=== PATIENT | female | born 1985 | race Two or more races ===

== ENCOUNTER 2024-06-21 13:10 | Outpatient (RCR) | payer MEDICAID, SELFPAY ==
--- NOTE | 2024-06-21 13:35 | XR_ITS ---
Examination: Biophysical profile, ultrasound Date and time of exam: June 21, 2024 1344 hours INDICATIONS: Diagnosis gestational diabetes, diagnosis advanced maternal age Technique: Multiple transabdominal sonographic images of the pelvis abdomen obtained. Attention is directed to the breathing movement, gross body movement, amniotic fluid volume and tone. Findings: Amniotic fluid index 8.2 cm Total biophysical profile is 8 of 8. breathing movement is 2. Gross body movement is 2. tone is 2. Qualitative amniotic fluid volume is 2 Impression: Biophysical profile is 8 of 8.
[2024-06-21 14:38] VITALS: BP 177/101; PULSE 80; RESP 18; TEMP 36.7
== END 2024-06-21 23:59 | disposition home or self-care (01) ==
LOC: S4S1 13:10
PROVIDERS: Referring Provider Student in an Organized Health Care Education/Training Program; Visit Provider Student in an Organized Health Care Education/Training Program
DX: O24.419 Gestational diabetes mellitus in pregnancy, unspecified control (principal); Z3A.37 37 weeks gestation of pregnancy
CPT/HCPCS: 59025; 76819

== ENCOUNTER 2024-06-21 14:44 | Inpatient (IN) | payer MEDICAID, SELFPAY ==
[2024-06-21] VITALS (77 sets, daily range): BP systolic 130–187; BP diastolic 69–103; PULSE 73–92; RESP 18; TEMP 36.4–37.2; O2SAT 96–100; BMI 26.4
[2024-06-21] MEDS: LABETALOL INJ 5 MG/ML VIAL 20 ML 20 MG IVP ×2 (15:02→23:53)
[2024-06-21 15:20] LABS: Basophils % (Auto) 0 % (0-2.5); Eosinophils # (Auto) 0.1 Thou/mm3 (0.0-0.5); Eosinophils % (Auto) 1 % (0-10); Hematocrit 26.7 % (36.0-46.0); Immature Granulocytes % (Auto) 0 % (0-0); Immature Granulocytes Auto 0.03 Thou/mm3 (0.00-0.00); Lymphocytes # (Auto) 1.9 Thou/mm3 (1.0-4.8); Lymphocytes % (Auto) 27 % (10-50); Mean Corpuscular HGB Conc 29.6 g/dl (31.0-37.0); Mean Corpuscular Hemoglobin 22.1 pg (25.0-35.0); Mean Corpuscular Volume 75 fL (80-100); Monocytes # (Auto) 0.4 Thou/mm3 (0.0-0.8); Monocytes % (Auto) 6 % (0-12); Neutrophils # (Auto) 4.5 Thou/mm3 (1.8-7.7); Neutrophils % (Auto) 65 % (37-80); Nucleated Red Blood Cell # 0.16 Thou/mm3 (0.00-0.00); Nucleated Red Blood Cell % 2 /100 WBC (0); Platelet Count 309 Thou/mm3 (140-440); RDW Standard Deviation 44.1 fL (36.4-46.3); Red Blood Count 3.57 Miln/mm3 (4.00-5.20)
[2024-06-21 15:26] LABS: Hemoglobin 7.9 g/dL (12.0-16.0)
[2024-06-21 15:51] LABS: INR 0.9 (0.9-1.3); Partial Thromboplastin Time 25.1 Seconds (22.0-36.0); Prothrombin Time 9.8 Seconds (9.0-12.2)
[2024-06-21 16:01] LABS: Alanine Aminotransferase 11 U/L (10-49); Albumin, Serum 3.6 gm/dL (3.5-5.0); Alkaline Phosphatase 329 U/L (46-116); Anion Gap 7 (7-16); Aspartate Amino Transferase 18 U/L (0-34); BUN/Creatinine Ratio 22 Ratio (12-20); Bilirubin,Total 0.4 mg/dL (0.3-1.2); Blood Urea Nitrogen 11 mg/dL (9-23); Calcium 8.5 mg/dL (8.3-10.6); Calcium (Corrected) 8.8 mg/dL (8.5-10.1); Carbon Dioxide 21.8 mMol/L (20.0-31.0); Chloride 107 mMol/L (98-107); Creatinine (Component) 0.5 mg/dL (0.6-1.3); Globulin 3.5 gm/dL (2.3-3.5); Glucose 113 mg/dL (74-106); Osmolality,Calculated 272 (275-295); Potassium 3.9 mMol/L (3.4-5.1); Sodium 136 mMol/L (136-145); Total Protein 7.1 gm/dL (5.7-8.2); eGFR > 60 See Note
[2024-06-21 16:08] LABS: Fibrinogen 620 mg/dL (175-375); Syphilis Nonreactive (Nonreactive)
[2024-06-21 17:16] LABS: Alcohol, Blood Medical < 3.0 mg/dL (0-10.0)
[2024-06-21 18:13] LABS: Collection Type, Urine Clean Catch; Squamous Epithelial Cell,Urine 0 /hpf (0-5)
[2024-06-21 18:23] LABS: Creatinine,Random Urine 30 mg/dL (30-125); Protein Total, Random Urine 31 mg/dL (1-14)
[2024-06-21 18:30] LABS: Amphetamine/Metham Scrn,Ur OB Negative (Negative); Benzoylecgonine Screen, Ur OB Negative (Negative); Opiate Screen,Urine OB Negative (Negative); THC Screen,Urine OB Negative (Negative)
[2024-06-21] MEDS: SODIUM CHLORIDE 0.9% 1000 ML 1,000 ML 80 ML IV (18:34)
[2024-06-21 18:36] LABS: Bilirubin,Urine Negative (Negative); Blood,Urine Negative (Negative); Clarity,Urine Clear (Clear/Hazy); Color,Urine Lt-Yellow (Lt Yel-Yel); Glucose, Urine Negative (Negative); Ketones,Urine Negative (Negative); Leukocyte Esterase,Urine Negative (Negative); Nitrite,Urine Negative (Negative); Protein,Urine Trace (Neg - Trace); RBC,Urine < 1 /hpf (0-3); Specific Gravity,Urine 1.009 (1.001-1.035); Urobilinogen,Urine Negative mg/dL (0.0-1.0); WBC,Urine < 1 /hpf (0-5)
--- NOTE | 2024-06-21 19:14 | ESHP_ITS ---
Documentation for date of: 06/21/24 OB Labor/Induct. HPI History of Present Illness Chief complaint: NST for CHTN/DM/AMA : 6 Para: 5 Term pregnancies: 4 pregnancies: 1 Living children: 4 History of Vaginal deliveries: 4 History of sections: Yes History of : No YAZ: 07/08/24 Gestational Age (weeks): 37 Gestational Age (days): 6 History of present illness: Patient is a 39-year-old status post vaginal delivery x 4 followed by C- section at 36 weeks for breech in labor. This was via a T incision. Patient presented for a nonstress test today for chronic hypertension, gestational diabetes, late care and advanced maternal age. Her blood pressure on presentation was in the 150s to 160s over 100s. She was admitted. PIH labs were normal except for severe anemia. Patient's hemoglobin is 7.9. She is consented for a repeat , she does not have tubal ligation papers signed. History of Present Dating criteria: LMP confirmed by 2nd trimester US Adequate Care: Yes Ultrasounds: normal mid trimester US Obstetrical complications: gestational diabetes, gestational hypertension and other Labs Labs: Negative: Hepatitis B, HIV, Chlamydia and Gonorrhea and Unknown: Group Beta Strep Review of Systems Constitutional Comments: Patient denies headache visual changes right upper quadrant pain contractions she reports good movement. Past Medical History Surgical History SURGICAL: Positive Section Meds Home Medications and Allergies Allergies Allergy/AdvReac Type Severity Reaction Status Date / Time No Known Drug Allergies Allergy Verified 06/21/24 15:56 OB Exam Physical Exam Vital signs: Temp Pulse Resp BP Pulse Ox 98.2 F 85 18 142/84 H 100 06/21/24 19:04 06/21/24 19:09 06/21/24 19:04 06/21/24 19:09 06/21/24 19:10 Routine Respiratory Exam Respiratory: Present CTA bilaterally Routine Cardiovascular Exam Cardiovascular: Present RRR Routine Abdominal Exam Abdominal: Present soft and surgical scars Detailed Labor and Delivery Exam monitor accelerations: 15x15 monitor decelerations: None superintendent marine oil terminal variability: Moderate (11-25) Contraction frequency (min): None Routine Extremities Exam Comments: No pedal edema OB Results Labs 06/21/24 14:55 06/21/24 14:55 Labs: Short CBC 06/21/24 Range/Units 14:55 WBC 7.0 (3.6-11.0) Thou/mm3 Hgb 7.9 L (12.0-16.0) g/dL Hct 26.7 L (36.0-46.0) % Plt Count 309 (140-440) Thou/mm3 BMP 06/21/24 14:55 Sodium 136 Potassium 3.9 Chloride 107 Carbon Dioxide 21.8 BUN 11 Creatinine 0.5 L Glucose 113 H Calcium 8.5 Liver Function 06/21/24 Range/Units 14:55 Total Bilirubin 0.4 (0.3-1.2) mg/dL AST 18 (0-34) U/L ALT 11 (10-49) U/L Alkaline Phosphatase 329 H (46-116) U/L Albumin 3.6 (3.5-5.0) gm/dL Urine 06/21/24 Range/Units 16:30 Urine Color Lt-Yellow (Lt Yel-Yel) Urine Clarity Clear (Clear/Hazy) Urine pH 6.0 (5.0-7.0) Ur Specific [place] 1.009 (1.001-1.035) Urine Protein Trace (Neg - Trace) Urine Glucose (UA) Negative (Negative) OB Assessment & Plan Assessment and Plan (1) Anemia: Status: Acute (2) Severe pre-eclampsia affecting seventh : Status: Acute (3) Advanced maternal age (AMA) in : Status: Acute (4) Previous section complicating : Status: Acute Additional Plan Additional Plan Comment: Patient is consented for repeat due to severe preeclampsia at 37+ weeks. She is anemic and 2 units of packed red blood cells are placed on hold. She is getting transfused prior to going to the operating room at least 1 unit of packed red blood cells. (1) Anemia Qualifiers: Anemia type: iron deficiency Iron deficiency anemia type: inadequate dietary iron intake Qualified Code(s): D50.8 - Other iron deficiency anemias
[2024-06-21] MEDS: ceFAZolin/D5W 2 GM IV 2 GM/100 ML BAG IV (21:01)
[2024-06-21] MEDS: CITRIC ACID/SODIUM CITR 15 ML UDC (BICITRA) 30 ML PO (21:02)
[2024-06-21] MEDS: FAMOTIDINE INJ 10 MG/ML VIAL 2 ML 20 MG IV (21:03)
--- NOTE | 2024-06-21 23:24 | PD.GYNPROC ---
Operative Note - [employer] BI DEVELOPER Procedure Date of procedure: 06/21/24 Procedure Performed: Repeat low-transverse section Indication: Patient is a 39-year-old -1-0-5 at 37 6/7 weeks who presented to OB triage for nonstress test and had elevated blood pressures in the 150s to 160s over 100 range. Preeclamptic labs were normal.She was also advanced maternal age and gestational diabetic [id number]. As patient had blood pressures in the severe preeclamptic range and a history of a prior she was consented for a repeat low-transverse section Pre-Op diagnosis: 1. Intrauterine at 37 6/7 weeks 2. Severe Preeclampsia Post-Op diagnosis: Same Anesthesia type: Spinal Procedure description: After obtaining informed consent, the patient was brought back to the operating room and spinal anesthesia was administered. She was then prepped and draped in a normal sterile fashion in the dorsal supine position with a leftward tilt. A Epstein catheter was inserted to the patient's bladder. Patient was given 2 g of Ancef by anesthesia. A Pfannenstiel skin incision was made with a scalpel through the patient's prior scar and carried down to the underlying fascia. The fascia was incised in the midline and the fascial incision extended laterally using Aguillon scissors. The superior aspect of the fascia was grasped with Jamshid clamps and the underlying rectus muscles dissected off using blunt and sharp dissection. This was repeated in the inferior aspect of the incision. The rectus muscles were the midline and the peritoneal cavity entered bluntly. Dense omental adhesions were noted to the patient's rectus muscles anteriorly. The adhesions were cleared away with blunt dissection. The bladder blade was inserted and the uterus was incised in a low transverse fashion using a scalpel above the bladder reflection. The uterine incision was extended laterally using blunt dissection with the surgeon's fingers. The bag of water was ruptured and clear fluid was noted. The bladder blade was removed, and the infant was delivered in the cephalic presentation atraumatically. The cord was clamped and cut after waiting 30 seconds, and the infant was handed off to the waiting pediatric staff. Cord blood was collected. Cord gases were saved. The placenta was then manually removed, and the uterus exteriorized and cleared of all clots and debris. The uterine incision was repaired using 1-0 Monocryl in a running locked fashion and excellent hemostasis was noted. The uterus was returned to the patient's abdominal cavity, and copious irrigation carried out with warm normal saline. The uterine incision was reexamined and noted to be hemostatic. A small amount of oozing was noted near her bladder flap and hemostatic powder was called for and Surgicel placed on the incision to obtain excellent hemostasis. The rectus muscles were reexamined and were noted to be hemostatic. These were reapproximated using a running suture of 0 Monocryl. The fascia was closed with 0 Vicryl in a running fashion. The subcutaneous tissues were irrigated and found to be hemostatic. These were reapproximated using a running suture of 3-0 plain. The skin was closed with a subcuticular suture of 4-0 Monocryl. Patient tolerated the procedure well. Sponge lap and needle counts were correct were correct x 2, the patient went to the recovery area awake and in stable condition. Fluid amount (mL): 1,600 Urine output (mL): 250 Specimen: none Implants: None Estimated blood loss (ml): 500 Findings: Liveborn male in the OA presentation with no nuchal cord and no meconium. Apgars were 8 and 8 weight was 2140 gm. Patient had dense adhesions of omentum to her anterior rectus muscles otherwise the uterus was noted to be normal. Bilateral fallopian tubes and ovaries were noted to be normal. Complications: none Narrative: Patient's hemoglobin on presentation was 7.9. She is status post 1 unit of packed red blood cells prior to going to the operating room. She has 1 unit of packed red blood cells on hold. Surgical staff Operation Date: 06/21/24 19:45 Case Staff HRIS ANALYST: Han Rosa RNlicensed home inspector: Joann Blair Diagnosis Problem List Completed Was Problem List Reviewed/Reconciled?: Yes
[2024-06-21 23:25] LABS: Amphetamine/Methamp Scrn,U Negative (Negative); Barbiturate Screen,Urine Negative (Negative); Benzodiazepines Screen,Urine Negative (Negative); Benzoylecgonine Screen, Ur Negative (Negative); Fentanyl Screen,Urine Negative (Negative); Opiate Screen,Urine Negative (Negative); THC Screen,Urine Negative (Negative)
[2024-06-22] VITALS (15 sets, daily range): BP systolic 142–164; BP diastolic 82–101; PULSE 79–96; RESP 17–20; TEMP 36.4–37.1; O2SAT 95–100
[2024-06-22] MEDS: LABETALOL INJ 5 MG/ML VIAL 20 ML 40 MG IVP (00:17)
[2024-06-22] MEDS: OXYTOCIN in NS 20 units 20 UNIT/1,000 ML BAG 125 UNIT IV (00:50)
--- NOTE | 2024-06-22 01:34 | PC.NURSE ---
06/22/24: 0115: Received report from L&D RN Susanna. Using telecommunications engineer Matthew #[id number]. Introduced myself to pt. and as channel lip stiffener insoles RN. Assessment performed/vital signs taken and documented. Patients fundus is firm, U-1, midline and bleeding is scant. Educated pt on importance of drinking fluids/when and how to call RN for assistance. Pt. denies any nausea, headache, blurry vision, or dizziness. Food/drink provided. Pt verbalizes understanding of her plan of care and has no further questions right now.
[2024-06-22 05:54] LABS: Hematocrit 23.3 % (36.0-46.0); Hemoglobin 7.2 g/dL (12.0-16.0)
[2024-06-22 06:16] LABS: Anion Gap 7 (7-16); BUN/Creatinine Ratio 16 Ratio (12-20); Blood Urea Nitrogen 8 mg/dL (9-23); Calcium 8.4 mg/dL (8.3-10.6); Carbon Dioxide 22.8 mMol/L (20.0-31.0); Chloride 106 mMol/L (98-107); Creatinine (Component) 0.5 mg/dL (0.6-1.3); Estimated Creatinine Clearance 126.4 mL/min (>60); Glucose 87 mg/dL (74-106); Osmolality,Calculated 269 (275-295); Sodium 136 mMol/L (136-145); eGFR > 60 See Note
--- NOTE | 2024-06-22 06:24 | PC.NURSE ---
06/22/24 0622: Called MD Coley to notify of post H&H results from this AM: 7.2.3. Received orders to transfuse 1 unit of PRBC's and order a CBC 4 hours post-transfusion completion.
[2024-06-22] MEDS: PRENATAL VITAMIN/FE FUM/FA TABLET 1 TAB PO (08:37)
--- NOTE | 2024-06-22 09:30 | PC.NURSE ---
Per Dr. Coley no need for a cbc 4 hr post transfusion, orderd cbc for tomorrow at 0500
--- NOTE | 2024-06-22 14:54 | ESPR_ITS ---
Subjective Subjective Interval history: Patient is postop day #1 status post repeat section. Patient had severe preeclampsia. She was very anemic on presentation with a hemoglobin of 7.9. She received 1 unit of packed red blood cells prior to going to the operating room. Her hemoglobin today is 7.2. She was transfused 1 more unit of packed red blood cells. Patient is resting comfortably she denies headaches scotomata or right upper quadrant pain. Exam Vital Signs Temp Pulse Resp BP Pulse Ox O2 Del Method 98.0 F 96 18 142/88 H 99 Room Air 06/22/24 11:00 06/22/24 11:00 06/22/24 11:00 06/22/24 11:00 06/22/24 11:00 06/22/24 11:00 Narrative Exam Patient is alert and oriented x 3 she is resting comfortably and has no complaints her pain is under control she is not bleeding heavily she is tolerating a general diet. Routine Abdominal Exam Abdominal: Present soft and surgical scars Comments: Fundus firm incision clean dry and intact Objective Labs 06/22/24 04:39 06/22/24 04:39 Labs: Laboratory Results - last 24 hr 06/21/24 06/21/24 06/21/24 14:55 16:30 21:40 WBC 7.0 RBC 3.57 L Hgb 7.9 L Hct 26.7 L MCV 75 L MCH 22.1 L MCHC 29.6 L RDW Std Deviation 44.1 Plt Count 309 Neut % (Auto) 65 Lymph % (Auto) 27 [place] % (Auto) 6 Eos % (Auto) 1 Baso % (Auto) 0 Neut # (Auto) 4.5 Lymph # (Auto) 1.9 [place] # (Auto) 0.4 Eos # (Auto) 0.1 Baso # (Auto) 0.0 Immature Gran # (Auto) 0.03 H Absolute Nucleated RBC 0.16 H Immature Gran % 0 Nucleated RBC % 2 H PT 9.8 INR 0.9 APTT 25.1 Fibrinogen 620 H* Sodium 136 Potassium 3.9 Chloride 107 Carbon Dioxide 21.8 Anion Gap 7 BUN 11 Creatinine 0.5 L Estim Creat Clear Calc Not Performed. eGFR > 60 BUN/Creatinine Ratio 22 H Glucose 113 H Calculated Osmolality 272 L Uric Acid 5.0 Calcium 8.5 Corrected Calcium 8.8 Total Bilirubin 0.4 AST 18 ALT 11 Alkaline Phosphatase 329 H Total Protein 7.1 Albumin 3.6 Globulin 3.5 Albumin/Globulin Ratio 1.0 L Ur Collection Type Clean Catch Urine Color Lt-Yellow Urine Clarity Clear Urine pH 6.0 Ur Specific [place] 1.009 Urine Protein Trace Urine Glucose (UA) Negative Urine Ketones Negative Urine Blood Negative Urine Nitrite Negative Urine Bilirubin Negative Urine Urobilinogen (Auto) Negative Ur Leukocyte Esterase Negative Urine RBC < 1 Urine WBC < 1 Ur Squamous Epith Cells 0 Urine Bacteria None Ur Random Creatinine 30 U Random Total Protein 31 H Urine Opiates Screen Negative Negative Urine Fentanyl Screen Negative Ur Barbiturates Screen Negative U Amphetamin/Meth Scrn Negative Negative U Benzodiazepines Scrn Negative U Cocaine Metab Screen Negative Negative U Marijuana (THC) Screen Negative Negative Ethyl Alcohol < 3.0 Syphilis Serology Nonreactive Blood Type O Positive Antibody Screen NEGATIVE Crossmatch See Detail Blood Bank Wristband ID Yes 06/22/24 04:39 WBC RBC Hgb 7.2 L Hct 23.3 L MCV MCH MCHC RDW Std Deviation Plt Count Neut % (Auto) Lymph % (Auto) [place] % (Auto) Eos % (Auto) Baso % (Auto) Neut # (Auto) Lymph # (Auto) [place] # (Auto) Eos # (Auto) Baso # (Auto) Immature Gran # (Auto) Absolute Nucleated RBC Immature Gran % Nucleated RBC % PT INR APTT Fibrinogen Sodium 136 Potassium 4.0 Chloride 106 Carbon Dioxide 22.8 Anion Gap 7 BUN 8 L Creatinine 0.5 L Estim Creat Clear Calc 126.4 eGFR > 60 BUN/Creatinine Ratio 16 Glucose 87 Calculated Osmolality 269 L Uric Acid Calcium 8.4 Corrected Calcium Total Bilirubin AST ALT Alkaline Phosphatase Total Protein Albumin Globulin Albumin/Globulin Ratio Ur Collection Type Urine Color Urine Clarity Urine pH Ur Specific [place] Urine Protein Urine Glucose (UA) Urine Ketones Urine Blood Urine Nitrite Urine Bilirubin Urine Urobilinogen (Auto) Ur Leukocyte Esterase Urine RBC Urine WBC Ur Squamous Epith Cells Urine Bacteria Ur Random Creatinine U Random Total Protein Urine Opiates Screen Urine Fentanyl Screen Ur Barbiturates Screen U Amphetamin/Meth Scrn U Benzodiazepines Scrn U Cocaine Metab Screen U Marijuana (THC) Screen Ethyl Alcohol Syphilis Serology Blood Type Antibody Screen Crossmatch Blood Bank Wristband ID Assessment & Plan Problem List (1) Anemia: Problem details: gestational due to dilution effect, iron deficiency and intrapartum blood loss, on supplemental iron Status: Acute (2) Severe pre-eclampsia affecting seventh : Status: Acute (3) Advanced maternal age (AMA) in : Status: Acute (4) Previous section complicating : Status: Acute Assessment Comment Assessment comment: Postop day #1 status post repeat for severe preeclampsia patient doing well. 2 doses of labetalol were pushed last p.m. Will keep an eye on blood pressures and consider oral medication. Plan Comment Plan Comment: Recheck hemoglobin in the morning. Follow blood pressures closely. Time Spent With Patient Time: Total time spent is greater than 50% in coordination of care (as documented) at patient's floor/unit and/or counseling patient: Time with patient: less than 15 minutes
--- NOTE | 2024-06-22 16:49 | PC.SS ---
BLACK MILL OPERATOR conducted bedside contact with the patient to discuss nursing referral indicating that the patient was late to care.? BLACK MILL OPERATOR utilized translation services.? BLACK MILL OPERATOR introduced self, role and basis of referral.? Patient confirmed late to care.? Patient stated that she was out of the area and unable to schedule OB appointment in timely manner.? Patient was able to schedule appointment at [facility].? , Chay; was delivered via .? is the patient?s 6th child.? Other children in the home are ages: 20, 18, 13, 11 and 3 years old.? FOB, Aron Mcdonough; will be involved in the rearing of the infant.? Patient is aligned with WIC and SNAP.? Patient is not accessing TANF.? Patient denies history of alcohol/drug abuse.? Patient denies CWS intervention.? Patient denies episodes of domestic violence.? Patient denies possessing a history of mental health, reports no current possession of depression or anxiety.? Patient plans on combo feeding the .? Patient has access to appropriate supplies and equipment; to include a car seat.? FOB will provide transportation upon discharge.? Patient describes possessing support system consisting of FOB and extended family.? BLACK MILL OPERATOR provided the patient with community resources to include Parenting Network and Warm Line.? No further intervention required at this time, social work lecturer will be available to address any further concerns.? BLACK MILL OPERATOR updated bedside nurse.?
--- NOTE | 2024-06-22 20:38 | PC.NURSE ---
MD Cloey made aware of BP 154/91,new order made and will carried out. Asked MD regarding dressing change, per MD to remove it in AM.
[2024-06-22] MEDS: NIFEdipine XL 30 MG TABCR PO (21:17)
[2024-06-23] VITALS (8 sets, daily range): BP systolic 119–165; BP diastolic 70–95; PULSE 87–96; RESP 18–19; TEMP 36.5–37.2; O2SAT 95–99
--- NOTE | 2024-06-23 01:37 | PC.NURSE ---
MD Coley made aware of BP 157/79 and I repeat after an hour BP went up to 165/95, new order made to give Labetalol 20mg now. Will continue to monitor.
[2024-06-23] MEDS: LABETALOL INJ 5 MG/ML VIAL 20 ML 20 MG IVP (02:01)
[2024-06-23] MEDS: Milk Of Magnesia Susp 30 ML UDC PO (02:12)
[2024-06-23] MEDS: ACETAMINOPHEN 325 MG TABLET 650 MG PO (02:12)
[2024-06-23] MEDS: SIMETHICONE 80 MG CHEW PO (02:12)
[2024-06-23 05:34] LABS: Basophils % (Auto) 0 % (0-2.5); Eosinophils % (Auto) 0 % (0-10); Hematocrit 27.1 % (36.0-46.0); Immature Granulocytes % (Auto) 1 % (0-0); Lymphocytes # (Auto) 1.6 Thou/mm3 (1.0-4.8); Lymphocytes % (Auto) 15 % (10-50); Mean Corpuscular HGB Conc 32.5 g/dl (31.0-37.0); Mean Corpuscular Hemoglobin 24.6 pg (25.0-35.0); Mean Corpuscular Volume 76 fL (80-100); Monocytes # (Auto) 0.6 Thou/mm3 (0.0-0.8); Monocytes % (Auto) 5 % (0-12); Neutrophils # (Auto) 8.4 Thou/mm3 (1.8-7.7); Neutrophils % (Auto) 78 % (37-80); Nucleated Red Blood Cell # 0.06 Thou/mm3 (0.00-0.00); Nucleated Red Blood Cell % 1 /100 WBC (0); Platelet Count 285 Thou/mm3 (140-440); RDW Standard Deviation 46.5 fL (36.4-46.3); Red Blood Count 3.58 Miln/mm3 (4.00-5.20); White Blood Count 10.8 Thou/mm3 (3.6-11.0)
[2024-06-23 05:39] LABS: Hemoglobin 8.8 g/dL (12.0-16.0)
[2024-06-23] MEDS: PRENATAL VITAMIN/FE FUM/FA TABLET 1 TAB PO (08:16)
[2024-06-23] MEDS: NIFEdipine XL 30 MG TABCR PO (08:16)
[2024-06-23] MEDS: IBUPROFEN TAB 400 MG TABLET 800 MG PO (08:16)
== END 2024-06-23 18:30 | disposition home or self-care (01) | DRG 540 ==
LOC: S4SX 18:51 → S4NX 23:16
PROVIDERS: Admitting Provider Obstetrics & Gynecology; Visit Provider Obstetrics & Gynecology
PROC: (CPT 59514; principal; 2024-06-21 19:30)
DX: O34.211 Maternal care for low transverse scar from previous cesarean delivery (principal); O24.429 Gestational diabetes mellitus in childbirth, unspecified control; O14.14 Severe pre-eclampsia complicating childbirth; Z37.0 Single live birth; Z3A.37 37 weeks gestation of pregnancy; O99.02 Anemia complicating childbirth; D50.8 Other iron deficiency anemias; K66.0 Peritoneal adhesions (postprocedural) (postinfection)
CPT/HCPCS: 36415; 80048; 80053; 80307; 80320; 81001; 82570; 84156; 84550; 85014; 85018; 85025; 85049; 85384; 85610; 85730; 86780; 86850; 86900; 86901; 86923; J0689; J2274; J2371; J2590; J3490; J7030; P9016; A9270; G0480; J1920; J2270